=== PATIENT | female | born 1970 | race Caucasian/White ===

== ENCOUNTER 2017-09-15 23:46 | Emergency (ER) | payer SELFPAY ==
[~2017-09-15] VITALS: Ht 177.8 cm; Wt 61.3 kg
[~2017-09-15 23:46] MED LIST: OXYC-360 PO; PREN0.01 PO; SLOW50TA PO; STOO100C PO
[2017-09-15 23:48] VITALS: BP 131/87; TEMP 98.2
--- NOTE | 2017-09-16 00:31 | PD ---
HPI Chief Complaint: Head Injury Time Seen by Provider: 23:50 Travel History International Travel<30 days: No Contact w/Intl Traveler<30days: No Traveled to known affect area: No History of Present Illness HPI The patient is a 46-year-old female that was drinking alcohol tonight and slipped and fell on stairs and hit the back of her head. She denies any loss of consciousness, headache, nausea or vomiting. She denies any focal neurologic change. She is not on any anticoagulants. The patient states she wants to refuse any CAT scans and even refused bandaging the wound. She also refused tetanus shots. She did not want to come to the emergency department. Later, the patient allowed bandaging the wound. She thinks her last tetanus was in middle school. [facility] Past Medical History Medical History: Denies Significant Hx Diminished Hearing: No Immunizations Current: Yes Tetanus Vaccination: > 5 Years Influenza Vaccination: Yes ?: Not LMP: 09/08/17 Past Surgical History Surgical History: No Previous Surgery Social History Alcohol Use: Yes (2-3 times a week ) Tobacco Use: No Substance Use: No Allergies-Medications (Allergen,Severity, Reaction): Coded Allergies: No Known Allergies (Verified Adverse Reaction, Unknown, 09/15/17) Reported Meds & Prescriptions Reported Meds & Active Scripts Active No Active Prescriptions or Reported Medications Review of Systems ROS Limitations: Intoxication Except as stated in HPI: all other systems reviewed are Neg Physical Exam Exam Limitations: Intoxication Narrative GENERAL: Well-nourished, well-developed patient who appears slightly intoxicated. Her vital signs are normal. She does have reason and can argue affectively. SKIN: Focused skin assessment warm/dry. There is a contusion with a minimal laceration around the contusion. These are tiny lacerations and would not be amenable to suturing or stapling. This is over the occipital area. The area of hematoma and contusion is about 2 cm in diameter. HEAD: Normocephalic. Neither raccoon eyes nor longoria sign is present. EYES: No scleral icterus. No injection or drainage. NECK: Supple, trachea midline. No JVD or lymphadenopathy. CARDIOVASCULAR: Regular rate and rhythm without murmurs, gallops, or rubs. RESPIRATORY: Breath sounds equal bilaterally. No accessory muscle use. GASTROINTESTINAL: Abdomen soft, non-tender, nondistended. MUSCULOSKELETAL: No cyanosis, or edema. BACK: Nontender without obvious deformity. No CVA tenderness. ENT: There is no hemotympanum present. Data Data Last Documented VS Vital Signs Date Time Temp Pulse Resp B/P (MAP) Pulse Ox O2 Delivery O2 Flow Rate FiO2 09/15/17 23:50 Room Air 09/15/17 23:48 98.2 92 18 131/87 (102) MDM Medical Decision Making Medical Screen Exam Complete: Yes Emergency Medical Condition: Yes Medical Record Reviewed: Yes Differential Diagnosis Scalp contusion, scalp laceration, skull fracture-highly unlikely, intracranial bleed-highly unlikely Narrative Course I wanted to order a CT scan of the brain, give the patient a tetanus shot and bandage the wound. Ultimately she loud bandaging of the wound but refuses CT scan of the brain and that had a shot. 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 She will hopefully get a reevaluation and at least a tetanus shot. Diagnosis Primary Impression: Contusion of scalp Additional Impression: Occipital scalp laceration Additional Instructions: When the alcohol wears off it is hoped that he will get a reevaluation, possibly CT scan or at least a tetanus shot. Do not drink alcohol in the next 3 -4 days. Med/Other Pt SpecificInfo: No Change to Meds Scripts No Active Prescriptions or Reported Meds Disposition: 01 DISCHARGE HOME Condition: Stable Jason Hartman MD Sep 16, 2017 00:31
== END 2017-09-16 00:41 | disposition home or self-care (01) ==
LOC: PHED 23:46
DX: S01.01XA Laceration without foreign body of scalp, initial encounter (principal); W10.9XXA Fall (on) (from) unspecified stairs and steps, initial encounter; F10.129 Alcohol abuse with intoxication, unspecified
CPT/HCPCS: 99283